=== PATIENT | male | born 1955 | race Caucasian/White ===

== ENCOUNTER 2017-06-08 11:20 | Observation (INO) | payer BC ==
[2017-06-08] MEDS: methylPREDNISolone Sodium Succinate 125 MG/2 ML SDV IV SCH ×2 (12:00→19:54)
[2017-06-08] MEDS: Sodium Chloride 0.9% 1,000 ML IV SCH ×2 (12:00→21:11)
[2017-06-08] MEDS ORDERED: Levofloxacin/Dextrose 5%-Water 500 MG in Premix Bag 1 BAG IV ONE (12:00)
[2017-06-08 14:15] LABS: CHLORIDE,CL 105 mEq/L (98-106); SODIUM,NA 142 mEq/L (136-145)
[2017-06-08] MEDS ORDERED: Calcium Carbonate 500 MG Tab.Chew PO PRN (15:01)
[2017-06-09] MEDS: Sodium Chloride 0.9% 1,000 ML IV SCH (04:11)
[2017-06-09] MEDS ORDERED: Levofloxacin/Dextrose 5%-Water 500 MG in Premix Bag 1 BAG IV SCH (08:00)
[2017-06-09] MEDS: methylPREDNISolone Sodium Succinate 125 MG/2 ML SDV IV SCH (08:30)
[2017-06-09] MEDS ORDERED: FENOFIBRATE 160 MG PO SCH (08:45)
[2017-06-09] MEDS ORDERED: Simvastatin 40 MG Tab PO SCH (08:45)
[2017-06-09] MEDS ORDERED: LOSARTAN 50 MG PO SCH (08:45)
[2017-06-09] MEDS ORDERED: METOPROLOL TARTRATE 25 MG PO SCH (08:45)
[2017-06-09] MEDS ORDERED: METFORMIN 500 MG PO SCH (08:45)
[2017-06-09] MEDS ORDERED: GLIPIZIDE 10 MG PO SCH (08:45)
[2017-06-09 10:18] VITALS: BP 111/68
--- NOTE | 2017-06-09 14:57 | PCM.DCSUM1 ---
Discharge Summary - Hospital Course Free Text/Narrative:: Patient admitted with diarrhea, weakness and hematochezia. Had been experiencing blood stools in the am prior to admission. Had a 5 day history of diarrhea with up to 10 stools per day. [place] unable to tolerate much for solid foods as "everything went right through him". Became more concerned as was noting blood in stools, "toilet turning red". Admitted for stool collection, IV fluids and labs. Did cover him with Levaquin and Solu Medrol for concerns with history of diverticulitis and potential colitis. - Discharge Data Discharge Date: 06/09/17 Discharge Disposition: Home, Self-Care 01 Condition: Fair - Patient Summary/Data Complications: none Hospital Course: Patient has done well. Only 3 loose stools since admission. Tolerated clear liquids, still having some GI irritation with soft foods. No fevers. Labs normal. Stool studies normal, no blood noted in stool. Patient denies abdominal pain. Voiding well. Discharge home with diet as tolerated. Continue to watch stools for blood. Follow up with Dr. Verma next week. - Patient Instructions Diet: Diabetic Diet Activity: As Tolerated - Discharge Plan Home Medications: Home Meds Fenofibrate 160 mg PO DAILY 05/31/14 [History] Metoprolol Tartrate [Lopressor] 12.5 mg PO BID 05/31/14 [History] Simvastatin 40 mg PO DAILY 05/31/14 [History] Aspirin 325 mg PO 2000 11/05/15 [History] Losartan [Cozaar] 50 mg PO DAILY 06/08/17 [History] glipiZIDE [Glipizide ER] 20 mg PO DAILY 06/08/17 [History] metFORMIN HCl [Metformin HCl ER] 1,000 mg PO BID 06/08/17 [History] Referrals: Inderjit Verma MD [Primary Care Provider] - (Follow up in one week with Dr. Verma ) - Discharge Summary/Plan Comment DC Time >30 min.: No Discharge Summary/Plan Comment: Discharge home on soft diet. See Dr. Verma in one week. - General Info Date of Service: 06/09/17 Admission Dx/Problem (Free Text: Diarrhea Hematochezia Functional Status: Reports: Pain Controlled, Tolerating Diet (tolerates clear liquids, more stools today after solid foods.), Ambulating - Review of Systems General: Denies: Fever, Weakness, Fatigue HEENT: Reports: No Symptoms Pulmonary: Denies: Shortness of Breath, Cough Cardiovascular: Denies: Chest Pain, Edema, Lightheadedness Gastrointestinal: Reports: Diarrhea. Denies: Abdominal Pain, Nausea, Vomiting Genitourinary: Reports: No Symptoms Musculoskeletal: Reports: No Symptoms Skin: Reports: No Symptoms Neurological: Reports: No Symptoms - Patient Data Vitals - Most Recent: Last Vital Signs Temp 97 F 06/09/17 08:00 Pulse 67 06/09/17 10:43 Resp 18 06/09/17 08:00 BP 111/68 06/09/17 10:43 Pulse Ox 95 06/09/17 08:00 Weight - Most Recent: 254 lb 11.2 oz I&O - Last 24 hours: Intake & Output 06/08/17 06/09/17 06/09/17 22:59 06:59 14:59 Intake Total 2000 1650 Output Total 200 1400 Balance 1800 250 Lab Results - Last 24 hrs: Laboratory Results - last 24 hr 06/08/17 06/08/17 06/08/17 Range/Units 11:00 11:00 11:00 WBC 6.0 (5.0-10.0) 10^3/uL RBC 4.68 (4.50-6.00) 10^6/uL Hgb 15.3 (14.0-18.0) g/dL Hct 43.8 (40.0-54.0) % MCV 93.6 (82.0-94.0) fL MCH 32.7 H (27.0-32.0) pg MCHC 34.9 (33.0-38.0) g/dL RDW Coeff of Paz 13.1 (11.0-15.0) % Plt Count 139 L (150-400) 10^3/uL Neut % (Auto) 38.5 (35-85) % Lymph % (Auto) 45.1 (10-55) % [place] % (Auto) 11.4 (0-16) % Eos % (Auto) 4.5 (0-5) % Baso % (Auto) 0.5 (0-3) % Neut # (Auto) 2.30 (1.80-7.00) 10^3/uL Lymph # (Auto) 2.69 (1.00-4.80) 10^3/uL [place] # (Auto) 0.68 (0.00-0.80) 10^3/uL Eos # (Auto) 0.27 (0.00-0.45) 10^3/uL Baso # (Auto) 0.03 10^3/uL Sodium 142 (136-145) mEq/L Potassium 3.4 L (3.5-5.0) mEq/L Chloride 105 (98-106) mEq/L Carbon Dioxide 29 (21-32) mmol/L BUN 15 (7-18) mg/dL Creatinine 1.0 (0.7-1.3) mg/dL Est Cr Clr Drug Dosing TNP Estimated GFR (MDRD) > 60 (>=60) mL/min Glucose 198 H (75-99) mg/dL POC Glucose (75-105) mg/dl Hemoglobin A1c (4.8-6.2) % Calcium 8.5 (8.4-10.1) mg/dL Total Bilirubin 1.1 H (0.0-1.0) mg/dL AST 68 H (15-37) U/L ALT 69 (12-78) U/L Alkaline Phosphatase 60 (46-116) U/L C-Reactive Protein 0.8 (0.2-0.8) mg/dL Total Protein 7.0 (6.4-8.2) g/dL Albumin 3.6 (3.4-5.0) g/dL Urine Color Dark yellow (YELLOW) Urine Appearance Clear (CLEAR) Urine pH 5.5 (4.5-8.0) Ur Specific [place] 1.025 H (1.003-1.020) Urine Protein Negative (NEGATIVE) mg/dL Urine Glucose (UA) 100 H (NEGATIVE) mg/dL Urine Ketones Negative (NEGATIVE) mg/dL Urine Occult Blood Trace-intact H (NEGATIVE) Urine Nitrite Negative (NEGATIVE) Urine Bilirubin Negative (NEGATIVE) Urine Urobilinogen 0.2 (0.2-1.0) EU/dL Ur Leukocyte Esterase Negative (NEGATIVE) Urine RBC 0-5 (0-5) /HPF Urine WBC Not seen (0-5) /HPF Ur Squamous Epith Cells Occasional H (NOT SEEN) /HPF Calcium Oxalate Crystal Few H (NOT SEEN) /HPF Urine Bacteria Occasional H (NOT SEEN) /HPF Urine Mucus Few H (NOT SEEN) /HPF 06/08/17 06/08/17 06/09/17 Range/Units 11:00 21:35 07:21 WBC (5.0-10.0) 10^3/uL RBC (4.50-6.00) 10^6/uL Hgb (14.0-18.0) g/dL Hct (40.0-54.0) % MCV (82.0-94.0) fL MCH (27.0-32.0) pg MCHC (33.0-38.0) g/dL RDW Coeff of Paz (11.0-15.0) % Plt Count (150-400) 10^3/uL Neut % (Auto) (35-85) % Lymph % (Auto) (10-55) % [place] % (Auto) (0-16) % Eos % (Auto) (0-5) % Baso % (Auto) (0-3) % Neut # (Auto) (1.80-7.00) 10^3/uL Lymph # (Auto) (1.00-4.80) 10^3/uL [place] # (Auto) (0.00-0.80) 10^3/uL Eos # (Auto) (0.00-0.45) 10^3/uL Baso # (Auto) 10^3/uL Sodium (136-145) mEq/L Potassium (3.5-5.0) mEq/L Chloride (98-106) mEq/L Carbon Dioxide (21-32) mmol/L BUN (7-18) mg/dL Creatinine (0.7-1.3) mg/dL Est Cr Clr Drug Dosing Estimated GFR (MDRD) (>=60) mL/min Glucose (75-99) mg/dL POC Glucose 228 H 172 H (75-105) mg/dl Hemoglobin A1c 7.6 H (4.8-6.2) % Calcium (8.4-10.1) mg/dL Total Bilirubin (0.0-1.0) mg/dL AST (15-37) U/L ALT (12-78) U/L Alkaline Phosphatase (46-116) U/L C-Reactive Protein (0.2-0.8) mg/dL Total Protein (6.4-8.2) g/dL Albumin (3.4-5.0) g/dL Urine Color (YELLOW) Urine Appearance (CLEAR) Urine pH (4.5-8.0) Ur Specific [place] (1.003-1.020) Urine Protein (NEGATIVE) mg/dL Urine Glucose (UA) (NEGATIVE) mg/dL Urine Ketones (NEGATIVE) mg/dL Urine Occult Blood (NEGATIVE) Urine Nitrite (NEGATIVE) Urine Bilirubin (NEGATIVE) Urine Urobilinogen (0.2-1.0) EU/dL Ur Leukocyte Esterase (NEGATIVE) Urine RBC (0-5) /HPF Urine WBC (0-5) /HPF Ur Squamous Epith Cells (NOT SEEN) /HPF Calcium Oxalate Crystal (NOT SEEN) /HPF Urine Bacteria (NOT SEEN) /HPF Urine Mucus (NOT SEEN) /HPF 06/09/17 Range/Units 12:00 WBC (5.0-10.0) 10^3/uL RBC (4.50-6.00) 10^6/uL Hgb (14.0-18.0) g/dL Hct (40.0-54.0) % MCV (82.0-94.0) fL MCH (27.0-32.0) pg MCHC (33.0-38.0) g/dL RDW Coeff of Paz (11.0-15.0) % Plt Count (150-400) 10^3/uL Neut % (Auto) (35-85) % Lymph % (Auto) (10-55) % [place] % (Auto) (0-16) % Eos % (Auto) (0-5) % Baso % (Auto) (0-3) % Neut # (Auto) (1.80-7.00) 10^3/uL Lymph # (Auto) (1.00-4.80) 10^3/uL [place] # (Auto) (0.00-0.80) 10^3/uL Eos # (Auto) (0.00-0.45) 10^3/uL Baso # (Auto) 10^3/uL Sodium (136-145) mEq/L Potassium (3.5-5.0) mEq/L Chloride (98-106) mEq/L Carbon Dioxide (21-32) mmol/L BUN (7-18) mg/dL Creatinine (0.7-1.3) mg/dL Est Cr Clr Drug Dosing Estimated GFR (MDRD) (>=60) mL/min Glucose (75-99) mg/dL POC Glucose 214 H (75-105) mg/dl Hemoglobin A1c (4.8-6.2) % Calcium (8.4-10.1) mg/dL Total Bilirubin (0.0-1.0) mg/dL AST (15-37) U/L ALT (12-78) U/L Alkaline Phosphatase (46-116) U/L C-Reactive Protein (0.2-0.8) mg/dL Total Protein (6.4-8.2) g/dL Albumin (3.4-5.0) g/dL Urine Color (YELLOW) Urine Appearance (CLEAR) Urine pH (4.5-8.0) Ur Specific [place] (1.003-1.020) Urine Protein (NEGATIVE) mg/dL Urine Glucose (UA) (NEGATIVE) mg/dL Urine Ketones (NEGATIVE) mg/dL Urine Occult Blood (NEGATIVE) Urine Nitrite (NEGATIVE) Urine Bilirubin (NEGATIVE) Urine Urobilinogen (0.2-1.0) EU/dL Ur Leukocyte Esterase (NEGATIVE) Urine RBC (0-5) /HPF Urine WBC (0-5) /HPF Ur Squamous Epith Cells (NOT SEEN) /HPF Calcium Oxalate Crystal (NOT SEEN) /HPF Urine Bacteria (NOT SEEN) /HPF Urine Mucus (NOT SEEN) /HPF [place] Results - Last 24 hrs: Microbiology 06/08/17 16:07 Clostridium difficile Toxin A&B (M) - Final Stool / Feces NEGATIVE CDIFF TOXIN Stool for WBCs - Final NO WBC SEEN Occult Blood - Preliminary Med Orders - Current: Current Medications Discontinued Medications Calcium Carbonate/Glycine (Tums) 500 - 1,000 mg PO QID PRN PRN Reason: DYSPEPSIA Fenofibrate (Fenofibrate) 160 mg PO DAILY [facility] Last Admin: 06/09/17 10:42 Dose: 160 mg Levofloxacin/Dextrose 500 mg/ (Premix) 100 mls @ 100 mls/hr IV ONETIME ONE Stop: 06/08/17 12:59 Last Admin: 06/08/17 12:00 Dose: 100 mls/hr Levofloxacin/Dextrose 500 mg/ (Premix) 100 mls @ 100 mls/hr IV Q24H [facility] Last Admin: 06/09/17 08:32 Dose: 100 mls/hr Sodium Chloride (Normal Saline) 1,000 mls @ 150 mls/hr IV ASDIRECTED [facility] Last Admin: 06/09/17 04:11 Dose: 150 mls/hr Metformin HCl (Glucophage Xr) 1,000 mg PO BID [facility] Last Admin: 06/09/17 10:43 Dose: 1,000 mg Methylprednisolone Sodium Succinate (Solu-Medrol) 62.5 mg IV BID [facility] Last Admin: 06/09/17 08:30 Dose: 62.5 mg Metoprolol Tartrate (Lopressor) 12.5 mg PO BID [facility] Last Admin: 06/09/17 10:43 Dose: 12.5 mg Ptom - Glipizide [ (Glipizide Er] 10 Mg) 10 mg PO DAILY [facility] Last Admin: 06/09/17 10:42 Dose: 10 mg Ptom - Losartan [ (Cozaar] 50 Mg Tab) 50 mg PO DAILY [facility] Last Admin: 06/09/17 10:44 Dose: 50 mg Simvastatin (Zocor) 40 mg PO DAILY [facility] Last Admin: 06/09/17 10:45 Dose: Not Given - Exam General: Reports: Alert, Oriented HEENT: Reports: Mucous Membr. Moist/[place]ck: Reports: Supple Lungs: Reports: Clear to Auscultation, Normal Respiratory Effort Cardiovascular: Reports: Regular Rate, Regular Rhythm GI/Abdominal Exam: Normal Bowel Sounds, Soft, Non-Tender Extremities: Normal Inspection, No Pedal Edema Skin: Reports: Warm, Dry Neurological: Reports: No New Focal Deficit Psy/Mental Status: Reports: Alert, Normal Affect, Normal Mood *Q Meaningful Use (DIS) - VTE *Q VTE Criteria *Q: - Stroke *Q Stroke Criteria *Q: - AMI *Q AMI Criteria *Q:
== END 2017-06-09 13:45 | disposition home or self-care (01) ==
LOC: CC.MS 11:20
PROVIDERS: ADMIT Family Medicine; ATTEND Family Medicine
DX: R19.7 Diarrhea, unspecified (principal); R53.1 Weakness; K92.1 Melena; Z79.84 Long term (current) use of oral hypoglycemic drugs; Z88.2 Allergy status to sulfonamides; Z79.899 Other long term (current) drug therapy
CPT/HCPCS: 36415; 80053; 81001; 82270; 82962; 83036; 85025; 86140; 87045; 87046; 87425; 87493; 89055; 96361; 96365; 96375; 96376; A9270; G0378; J1956; J2930; J7030

== ENCOUNTER 2021-08-08 13:52 | Emergency (ER) | payer BC ==
[2021-08-08 14:03] VITALS: BP 158/99; PULSE 70
[2021-08-08] MEDS ORDERED: Ondansetron 4 MG Tab.DIS PO ONE (14:18)
[2021-08-08] MEDS ORDERED: Meclizine 12.5 MG Tab PO ONE (14:34)
== END 2021-08-08 15:11 | disposition home or self-care (01) ==
LOC: CC.ED 13:52
DX: H81.11 Benign paroxysmal vertigo, right ear (principal); H61.23 Impacted cerumen, bilateral; E78.00 Pure hypercholesterolemia, unspecified; I10 Essential (primary) hypertension; E11.9 Type 2 diabetes mellitus without complications; I25.2 Old myocardial infarction; Z88.2 Allergy status to sulfonamides; Z79.82 Long term (current) use of aspirin; Z79.899 Other long term (current) drug therapy
CPT/HCPCS: 69210; 99283; A9270

== ENCOUNTER 2023-01-27 12:05 | Emergency (ER) | payer BC, MEDICARE ==
[2023-01-27] MEDS: Lidocaine 1% with EPINEPHrine 1:100,000 20 ML MDV INJECT ONE (12:22)
[2023-01-27] MEDS: Diphtheria,Pertussis(Acell),Tetanus Vaccine 0.5 ML Syringe IM ONE (12:23)
[2023-01-27] MEDS: Bacitracin/Neomycin/Polymyxin B Oint 0.9 GM U/D Packet TOP ONE (12:50)
[2023-01-27 13:00] VITALS: BP 117/75; PULSE 71
== END 2023-01-27 13:10 | disposition home or self-care (01) ==
LOC: CC.ED 12:05
DX: S61.411A Laceration without foreign body of right hand, initial encounter (principal); E78.00 Pure hypercholesterolemia, unspecified; I10 Essential (primary) hypertension; I25.2 Old myocardial infarction; E11.9 Type 2 diabetes mellitus without complications; Z95.1 Presence of aortocoronary bypass graft; Z88.2 Allergy status to sulfonamides; Z79.82 Long term (current) use of aspirin; Z79.84 Long term (current) use of oral hypoglycemic drugs; Z79.899 Other long term (current) drug therapy; Z23 Encounter for immunization; W26.8XXA Contact with other sharp object(s), not elsewhere classified, initial encounter
CPT/HCPCS: 12001; 73130-RT; 90471; 90715; 99283; 99283-25; A9270-GY; J3490

== ENCOUNTER 2024-06-09 12:20 | Day surgery (SDC) | payer MEDICARE ==
[2024-06-09] MEDS: Lactated Ringers 1,000 ML IV SCH (12:54)
[2024-06-09] MEDS ORDERED: Flumazenil 0.1 MG/ML 5 ML MDV ONE (13:05)
[2024-06-09] MEDS ORDERED: Ketamine 200 MG/20 ML MDV ONE (13:05)
[2024-06-09] MEDS ORDERED: Propofol 200 MG/20 ML SDV ONE ×2 (13:05)
[2024-06-09] MEDS ORDERED: fentaNYL 50 MCG/ML SDV ONE (13:05)
[2024-06-09] MEDS ORDERED: Midazolam 1 MG/ML 2 ML SDV ONE (13:05)
[2024-06-09 14:32] VITALS: BP 103/59; PULSE 58
== END 2024-06-09 14:42 | disposition home or self-care (01) ==
LOC: CC.SDS 12:20
PROVIDERS: ATTEND Family Medicine
DX: Z12.11 Encounter for screening for malignant neoplasm of colon (principal); D12.3 Benign neoplasm of transverse colon; K57.30 Diverticulosis of large intestine without perforation or abscess without bleeding; K64.4 Residual hemorrhoidal skin tags; I10 Essential (primary) hypertension; E11.9 Type 2 diabetes mellitus without complications; E78.00 Pure hypercholesterolemia, unspecified; I25.10 Atherosclerotic heart disease of native coronary artery without angina pectoris; N40.0 Benign prostatic hyperplasia without lower urinary tract symptoms; Z95.1 Presence of aortocoronary bypass graft; Z79.84 Long term (current) use of oral hypoglycemic drugs; Z79.85 Long-term (current) use of injectable non-insulin antidiabetic drugs; Z79.82 Long term (current) use of aspirin; Z79.899 Other long term (current) drug therapy; Z88.2 Allergy status to sulfonamides
CPT/HCPCS: J2250; J2704; J3010; J3490; J7120

== ENCOUNTER 2024-12-02 20:32 | Emergency (ER) | payer MEDICARE ==
[2024-12-02] MEDS: Ondansetron 4 MG/2 ML SDV IVPUSH PRN (21:00)
[2024-12-02] MEDS: HYDROmorphone 1 MG/ML Syringe IVPUSH ONE ×2 (21:00→22:58)
[2024-12-02 21:03] VITALS: BP 121/73; PULSE 85
[2024-12-02 21:07] LABS: BASOPHILS ABSOLUTE AUTO 0.02 10^3/uL (0.00-0.50); BASOPHILS PERCENT AUTO 0.4 % (0-1); EOSINOPHILS PERCENT AUTO 2.1 % (0-6); HEMOGLOBIN 13.8 g/dL (14.0-18.0); IMMATURE GRAN ABSOLUTE AUTO 0.01 10^3/uL (0.00-0.49); IMMATURE GRAN PERCENT AUTO 0.2 % (0.0-4.9); LYMPHOCYTES ABSOLUTE AUTO 1.23 10^3/uL (0.60-5.00); LYMPHOCYTES PERCENT AUTO 25.6 % (24-44); MEAN CORPUSCULAR HEMOGLOBIN 32.8 pg (27.0-32.0); MEAN CORPUSCULAR HGB CONC 34.5 g/dL (32.0-36.0); MONOCYTES ABSOLUTE AUTO 0.41 10^3/uL (0.00-1.50); MONOCYTES PERCENT AUTO 8.5 % (0-10); NEUTROPHILS ABSOLUTE AUTO 3.04 x10^3/uL (1.80-8.00); NEUTROPHILS PERCENT AUTO 63.2 % (41-71); PLATELET COUNT,PLT 64 10^3/uL (150-400); RED BLOOD CELL COUNT 4.21 x10^6/uL (4.50-6.00); WHITE BLOOD CELL COUNT,WBC 4.8 10^3/uL (4.0-11.0)
[2024-12-02 21:15] LABS: APPEARANCE,URINE CLEAR (CLEAR); BILIRUBIN,URINE NEGATIVE (NEGATIVE); COLOR,URINE YELLOW (YELLOW); GLUCOSE,URINE 100 mg/dL (NEGATIVE); KETONES,URINE NEGATIVE (NEGATIVE); LEUKOCYTE ESTERASE,URINE NEGATIVE (NEGATIVE); NITRITE,URINE NEGATIVE (NEGATIVE); OCCULT BLOOD,URINE LARGE (NEGATIVE); PH,URINE 5.5 (4.5-8.0); PROTEIN,URINE 30 mg/dL (NEGATIVE); UROBILINOGEN,URINE 0.2 EU/dL (0.2-1.0)
[2024-12-02 21:22] LABS: BACTERIA,URINE NOT SEEN /HPF (NOT SEEN); EPITHELIAL CELLS,URINE NOT SEEN /HPF (NOT SEEN); MUCUS,URINE FEW /HPF (NOT SEEN); WBC,URINE NOT SEEN /HPF (0-5)
[2024-12-02 21:23] LABS: ALBUMIN 3.4 g/dL (3.4-5.0); BILIRUBIN TOTAL 1.1 mg/dL (0.0-1.0); CALCIUM 9.3 mg/dL (8.4-10.1); CREATININE 1.2 mg/dL (0.7-1.3); EST CRCL DRUG DOSING (CG) 62.52 mL/min; MAGNESIUM 1.6 mg/dL (1.8-2.4); POTASSIUM,K 3.9 mEq/L (3.5-5.0); PROTEIN TOTAL,TP 6.8 g/dL (6.4-8.2)
[2024-12-02] MEDS: Iopamidol 755 Mg/ML 100 ML Bottle IVPUSH ONE (21:38)
[2024-12-02] MEDS: Take Home: Cyclobenzaprine 10 MG Tab, 4 Tab Pack PO ONE (23:48)
[2024-12-02] MEDS: Take Home: Acetaminophen/oxyCODONE 325-5 MG, 2 Tab Pack PO ONE (23:48)
== END 2024-12-03 00:10 | disposition home or self-care (01) ==
LOC: CC.ED 20:32
DX: S22.051A Stable burst fracture of T5-T6 vertebra, initial encounter for closed fracture (principal); S20.219A Contusion of unspecified front wall of thorax, initial encounter; I10 Essential (primary) hypertension; E78.00 Pure hypercholesterolemia, unspecified; I25.2 Old myocardial infarction; E11.9 Type 2 diabetes mellitus without complications; Z95.1 Presence of aortocoronary bypass graft; Z79.82 Long term (current) use of aspirin; Z79.84 Long term (current) use of oral hypoglycemic drugs; Z79.899 Other long term (current) drug therapy; Z88.2 Allergy status to sulfonamides; W18.30XA Fall on same level, unspecified, initial encounter
CPT/HCPCS: 36415; 70450; 71045; 71260; 72125; 72128; 72131; 74177; 80053; 81001; 82947; 83735; 84484; 85025; 85730; 96374; 96375; 96376; 99285; A9270; J1171; J2405; Q9967; 93010; 99284